=== PATIENT | female | born 1945 | race Caucasian/White ===

== ENCOUNTER 2017-04-25 18:13 | Inpatient (IN) | payer OTHER ==
[~2017-04-25] VITALS: Ht 160 cm; Wt 99.0 kg
[~2017-04-25 18:13] MED LIST: BACLOFEN20 MG PO; FLA250 PO; FOSAMAX70 M1; HYDROCODONE PO; LAC PO; LACTULOSE10 GM/152 PO; MIR125 PO; NAPROXEN500 MG PO; NATURAL IRON65 MG PO; NEU300 PO; PROTONIX40 MG PO; SERTRALINE25 M1 PO; ZANTAC 300300 MG PO; ZESTRIL20 MG PO
[2017-04-25 19:31] LABS: BASOPHIL % 0.5 % (0-2); PLATELET COUNT 391 x10^3mcL (130-400)
[2017-04-25 19:32] LABS: UA SPECIFIC GRAVITY <=1.005 (1.005-1.035); microscopic required? YES; urine erythrocyte NEGATIVE (NEGATIVE)
[2017-04-25 19:37] LABS: CALCIUM 8.7 mg/dL (8.5-10.1); CARBON DIOXIDE 28.1 mmol/L (21-32); CHLORIDE SERUM 96 mmol/L (98-107); CREATININE SERUM 1.1 mg/dL (0.6-1.0); GLUCOSE SERUM 141 mg/dL (74-106); POTASSIUM SERUM 3.1 mmol/L (3.5-5.1); SODIUM SERUM 133 mmol/L (136-145)
[2017-04-25 19:44] LABS: ALBUMIN 3.9 g/dL (3.4-5.0); ALKALINE PHOSPHATASE 120 U/L (46-116); ALT/SGPT 10 U/L (14-59); AST/SGOT 20 U/L (15-37); BILIRUBIN TOTAL 0.36 mg/dL (0.20-1.00); TOTAL PROTEIN, SERUM 8.2 g/dL (6.4-8.2)
[2017-04-25] MEDS ORDERED: BACLOFEN10 MG PO (20:53)
[2017-04-25] MEDS ORDERED: FUROSEMIDE20 MG PO (20:54)
[2017-04-25] MEDS ORDERED: KLOR-CON M2020 MEQ PO (20:54)
[2017-04-25] MEDS ORDERED: METOPROLOL SUCC50 M2 PO (20:55)
[2017-04-25 21:53] LABS: CHOLESTEROL/HDL RATIO 4.4; PHOSPHOROUS 2.4 mg/dL (2.5-4.9)
[2017-04-25 21:54] LABS: T3 TOTAL 0.97 ng/mL
[2017-04-25 21:55] VITALS: BP 169/90
[2017-04-25 21:56] LABS: FREE T4 1.33 ng/dL (0.76-1.46); T4(THYROXINE) 11.3 ug/dL (4.7-13.3)
[2017-04-26 05:53] VITALS: BP 155/81
[2017-04-26 08:50] LABS: BASOPHIL % 0.3 % (0-2); PLATELET COUNT 346 x10^3mcL (130-400)
[2017-04-26 08:53] LABS: CALCIUM 7.8 mg/dL (8.5-10.1); CHLORIDE SERUM 97 mmol/L (98-107); CREATININE SERUM 1.1 mg/dL (0.6-1.0); GLUCOSE SERUM 214 mg/dL (74-106); MAGNESIUM 1.7 mg/dL (1.8-2.4); POTASSIUM SERUM 3.3 mmol/L (3.5-5.1); SODIUM SERUM 133 mmol/L (136-145)
[2017-04-26 08:56] LABS: RED CELL DISTRIBUTION WIDTH 15.1 % (11.5-14.5)
[2017-04-26 09:59] VITALS: BP 149/73
[2017-04-26 13:31] VITALS: BP 168/76
[2017-04-26 15:59] VITALS: BP 154/78
[2017-04-26 17:36] VITALS: BP 155/71
[2017-04-26 21:16] VITALS: BP 138/87
[2017-04-27 04:46] VITALS: BP 167/88
[2017-04-27 07:03] LABS: BASOPHIL % 0.1 % (0-2); PLATELET COUNT 380 x10^3mcL (130-400)
[2017-04-27 07:05] LABS: RED CELL DISTRIBUTION WIDTH 14.8 % (11.5-14.5)
[2017-04-27 07:11] LABS: CALCIUM 8.5 mg/dL (8.5-10.1); CARBON DIOXIDE 23.7 mmol/L (21-32); CHLORIDE SERUM 99 mmol/L (98-107); CREATININE SERUM 1.1 mg/dL (0.6-1.0); GLUCOSE SERUM 171 mg/dL (74-106); MAGNESIUM 2.5 mg/dL (1.8-2.4); PHOSPHOROUS 2.7 mg/dL (2.5-4.9); POTASSIUM SERUM 4.6 mmol/L (3.5-5.1); SODIUM SERUM 132 mmol/L (136-145)
[2017-04-27 09:14] VITALS: BP 145/78
[2017-04-27] MEDS ORDERED: CLINDAMYCIN HC300 MG PO (11:12)
[2017-04-27] MEDS ORDERED: LEVAQUIN750 MG PO (11:13)
[2017-04-27] MEDS ORDERED: LAC PO (11:14)
[2017-04-27] MEDS ORDERED: MEDDP PO (11:38)
[2017-04-27] MEDS ORDERED: GOOD SENSE ASPI81 M3 PO (11:44)
[2017-04-27] MEDS ORDERED: LIPI10 PO (11:45)
[2017-04-27 13:00] VITALS: BP 143/70
[2017-04-27 14:31] VITALS: BP 143/70
== END 2017-04-27 15:57 | disposition home health service (06) | DRG 871 ==
LOC: ED 18:13 → DU 20:33
PROVIDERS: Emergency Medicine; Student in an Organized Health Care Education/Training Program; ADMIT Family Medicine Sports Medicine
DX: A41.9 Sepsis, unspecified organism (principal); J69.0 Pneumonitis due to inhalation of food and vomit; N17.0 Acute kidney failure with tubular necrosis; J44.1 Chronic obstructive pulmonary disease with (acute) exacerbation; N39.0 Urinary tract infection, site not specified; E87.1 Hypo-osmolality and hyponatremia; I16.0 Hypertensive urgency; E86.0 Dehydration; E87.6 Hypokalemia; K21.9 Gastro-esophageal reflux disease without esophagitis; E11.65 Type 2 diabetes mellitus with hyperglycemia; E11.51 Type 2 diabetes mellitus with diabetic peripheral angiopathy without gangrene; E83.39 Other disorders of phosphorus metabolism; E83.42 Hypomagnesemia; G47.00 Insomnia, unspecified; I10 Essential (primary) hypertension; D64.9 Anemia, unspecified; Z87.891 Personal history of nicotine dependence; Z68.38 Body mass index [BMI] 38.0-38.9, adult
CPT/HCPCS: 82962; 83880; 84439; 87804; J0696; J1885; J1956; J2405; J2765; J2920; J2930; J3475; J3480; J3490; J7030; J7620; Q0092